=== PATIENT | female | born 1945 | race Caucasian/White ===

== ENCOUNTER → 2017-08-04 | Outpatient (CLI) | payer MEDICARE, OTHER ==
[~2017-08-04] MED LIST: ACEBUTCAFT PO; ACET500 PO; ALEN70 PO; CALCIT950 PO; CEPH500 PO; CYCL10; CYCL10 PO; DILT180 PO; DILT180ER PO; DIPH50 PO; DOCU100 PO; FURO40; FURO40 PO; HYDACE5 PO; HYDMOR2 PO; HYDR1TAB94 PO; LEVSOD200; LEVSOD200 PO; LEVSOD25 PO; ONDA4ODT MM; ONDA8 PO; POTA10T; POTA10T PO; POTCHL10ER PO; PRENZ PO; PROP80; VENL25 PO; VENL75ER; VENL75ER PO; [UNRECOGNIZED DRUG - OTHER]
[2017-08-04 10:16] LABS: BASOPHILS ABSOLUTE AUTO 0.06 K/mm3 (0.00-0.23); BASOPHILS PERCENT AUTO 1 % (0-2); EOSINOPHILS ABSOLUTE AUTO 0.36 K/mm3 (0.00-0.68); EOSINOPHILS PERCENT AUTO 6 % (0-6); Hematocrit 39.6 % (33.0-51.0); Hemoglobin 13.1 g/dL (11.5-16.0); IMMATURE GRAN ABSOLUTE AUTO 0.01 K/mm3 (0.00-0.10); IMMATURE GRAN PERCENT AUTO 0 % (0-1); LYMPHOCYTES ABSOLUTE AUTO 1.25 K/mm3 (0.84-5.20); LYMPHOCYTES PERCENT AUTO 22 % (21-46); MONOCYTES ABSOLUTE AUTO 0.47 K/mm3 (0.16-1.47); MONOCYTES PERCENT AUTO 8 % (4-13); Mean Corpuscular HGB 30.8 pg (26.0-34.0); Mean Corpuscular HGB Conc 33.1 g/dL (31.5-36.5); Mean Corpuscular Volume 93 fL (80-100); Mean Platelet Volume 10.1 fL (9.1-12.4); NEUTROPHILS ABSOLUTE AUTO 3.53 K/mm3 (1.96-9.15); NEUTROPHILS PERCENT AUTO 62 % (41-73); Platelet Count 200 K/mm3 (150-400); RDW Coefficient Variation 13.3 % (11.7-14.2); RDW Standard Deviation 45.1 fL (35.1-46.3); Red Blood Cell Count 4.26 M/mm3 (3.80-5.20); White Blood Cell Count 5.68 K/mm3 (4.00-11.30)
[2017-08-04 10:32] LABS: Alanine Aminotransfer (ALT/SGP 26 U/L (12-78); Albumin, Blood 3.5 g/dL (3.4-5.0); Albumin/Globulin Ratio 1.1 (0.8-1.8); Alk Phos 91 U/L (40-126); Anion Gap 6 mmol/L (6-16); Aspartate Aminotrans (AST/SGOT 23 U/L (12-37); Bilirubin, Total 0.4 mg/dL (0.1-1.0); Blood Urea Nitrogen 25 mg/dL (8-24); Bun/Creatinine Ratio 28.7 (12.0-20.0); CO2, Blood 30 mmol/L (21-32); Calcium, Blood 9.2 mg/dL (8.5-10.1); Chloride, Blood 106 mmol/L (98-108); Creatinine, Blood 0.87 mg/dL (0.40-1.00); Globulin, Blood 3.3 g/dL (2.2-4.0); Glomerular Filtration Rate >60 (60-); Glucose, Blood 91 mg/dL (70-99); Potassium, Blood 4.3 mmol/L (3.5-5.5); Sodium, Blood 142 mmol/L (136-145); Total Protein, Blood 6.8 g/dL (6.4-8.2); Troponin I <0.017 ng/mL (0.000-0.040)
== END ==
LOC: LAB EV 10:13 → LAB SHORT 10:13
PROVIDERS: Emergency Medicine
DX: R07.9 Chest pain, unspecified (principal)
CPT/HCPCS: 80053; 84484; 85025

== ENCOUNTER 2018-03-08 11:57 | Day surgery (SDC) | payer MEDICARE, OTHER ==
[~2018-03-08] VITALS: Ht 172.7 cm; Wt 89.0 kg
--- NOTE | 2018-03-08 15:28 | NUR ---
03/08/18 1528 Shelly Carroll AT 1430 PT WAS DC'D IN STABLE CONDITION WITH INSTRUCTIONS FOR CARE AND FOLLOW UP. BANDAID TO NECK C/D/I AND PT DENIED PAIN AND NAUSEA. SANDIE PO FLUIDS WELL AND STATED WAS GOING TO LUNCH WITH HER FRIEND ALLEN AFTER LEAVING HERE. COPIES OF INSTRUCTIONS GIVEN AND AMB TO CAR TOCrystal WELL
== END 2018-03-08 14:30 | disposition home or self-care (01) ==
LOC: ORSCSDS 11:57
PROVIDERS: Anesthesiology
PROC: 3E0R33Z Introduction of Anti-inflammatory into Spinal Canal, Percutaneous Approach (ICD-10-PCS; principal; 2018-03-08 13:00)
DX: M50.123 Cervical disc disorder at C6-C7 level with radiculopathy (principal); G47.33 Obstructive sleep apnea (adult) (pediatric); I10 Essential (primary) hypertension; E03.9 Hypothyroidism, unspecified; F32.9 Major depressive disorder, single episode, unspecified; Z79.899 Other long term (current) drug therapy
CPT/HCPCS: J1040; J2250; J3010; J7120

== ENCOUNTER → 2018-03-20 | Outpatient (CLI) | payer MEDICARE, OTHER | END | disposition home or self-care (01) | LOC: LAB EV 14:00 → LAB SHORT 14:00 | DX: R35.0 Frequency of micturition (principal) | CPT/HCPCS: 87086 ==

== ENCOUNTER → 2018-04-05 | Outpatient (CLI) | payer MEDICARE, OTHER | END | disposition home or self-care (01) | LOC: LAB EV 11:10 → LAB SHORT 11:10 | DX: R31.9 Hematuria, unspecified (principal) | CPT/HCPCS: 87086 ==

== ENCOUNTER 2018-04-29 12:49 | Day surgery (SDC) | payer MEDICARE, OTHER ==
[~2018-04-29] VITALS: Ht 172.7 cm; Wt 90.5 kg
[2018-04-29] MEDS ORDERED: DOCU100 PO (13:29)
[2018-04-29] MEDS ORDERED: DILT180ER PO (13:30)
--- NOTE | 2018-04-29 15:56 | NUR ---
04/29/18 1556 Amber Cruz DELAYED ENTRY PT STS BETADINE ALLERGY; PHYSICIAN AWARE & TO PROCEED WITH CASE. BETADINE USED WITH PREVIOUS EPIDURAL WITH NO ISSUES OR COMPLICATIONS PER PT & PHYSICIAN. BETADINE CLEANED FROM OPSITE AT THIS TIME; NO RASH OR SKIN IRRITATION NOTED.
== END 2018-04-29 14:34 | disposition home or self-care (01) ==
LOC: ORSCSDS 12:49
PROVIDERS: Anesthesiology
PROC: 3E0R33Z Introduction of Anti-inflammatory into Spinal Canal, Percutaneous Approach (ICD-10-PCS; principal; 2018-04-29 15:00)
DX: M54.5 Low back pain (principal); G47.33 Obstructive sleep apnea (adult) (pediatric); M48.061 Spinal stenosis, lumbar region without neurogenic claudication; E03.9 Hypothyroidism, unspecified; I10 Essential (primary) hypertension; F32.9 Major depressive disorder, single episode, unspecified; E66.9 Obesity, unspecified; Z68.30 Body mass index [BMI] 30.0-30.9, adult; Z79.899 Other long term (current) drug therapy
CPT/HCPCS: J1040

== ENCOUNTER 2018-07-10 10:29 | Day surgery (SDC) | payer MEDICARE, OTHER ==
[~2018-07-10] VITALS: Ht 172.7 cm; Wt 88.6 kg
[~2018-07-10 10:29] MED LIST changes: +Norco 5-325 Ta1 EACH PO; +PRENA1 TRUE CO1 EACH PO; +SYNTHROID175 MCG PO
[2018-07-10] MEDS ORDERED: Sleep Aid25 M1 PO (11:02)
== END 2018-07-10 11:51 | disposition home or self-care (01) ==
LOC: ORSCSDS 10:29
PROVIDERS: Anesthesiology
PROC: B01B1ZZ Fluoroscopy of Spinal Cord using Low Osmolar Contrast (ICD-10-PCS; principal; 2018-07-10 11:30)
PROC: 3E0R33Z Introduction of Anti-inflammatory into Spinal Canal, Percutaneous Approach (ICD-10-PCS; principal; 2018-07-10 11:30)
DX: M54.12 Radiculopathy, cervical region (principal); I10 Essential (primary) hypertension; G47.33 Obstructive sleep apnea (adult) (pediatric); E03.9 Hypothyroidism, unspecified; Z79.899 Other long term (current) drug therapy
CPT/HCPCS: J1040; J2250; J3010; J7120

== ENCOUNTER 2018-10-31 08:31 | Day surgery (SDC) | payer MEDICARE, OTHER ==
[~2018-10-31] VITALS: Ht 172.7 cm; Wt 91.9 kg
[~2018-10-31 08:31] MED LIST changes: +Sleep Aid25 M1 PO
[2018-10-31] MEDS ORDERED: ALEN70 (08:57)
== END 2018-10-31 09:26 | disposition home or self-care (01) ==
LOC: ORSCSDS 08:31
PROVIDERS: Anesthesiology
PROC: 3E0R33Z Introduction of Anti-inflammatory into Spinal Canal, Percutaneous Approach (ICD-10-PCS; principal; 2018-10-31 09:30)
DX: M51.16 Intervertebral disc disorders with radiculopathy, lumbar region (principal); I10 Essential (primary) hypertension; E03.9 Hypothyroidism, unspecified; G47.33 Obstructive sleep apnea (adult) (pediatric); F32.9 Major depressive disorder, single episode, unspecified; Z79.899 Other long term (current) drug therapy
CPT/HCPCS: J1040

== ENCOUNTER → 2019-12-24 | Outpatient (CLI) | payer MEDICARE, OTHER ==
[~2019-12-24] MED LIST changes: +ALEN70
[2019-12-24 15:06] LABS: BASOPHILS ABSOLUTE AUTO 0.05 K/mm3 (0.00-0.23); BASOPHILS PERCENT AUTO 1 % (0-2); EOSINOPHILS ABSOLUTE AUTO 0.37 K/mm3 (0.00-0.68); EOSINOPHILS PERCENT AUTO 6 % (0-6); Hematocrit 39.9 % (33.0-51.0); Hemoglobin 12.5 g/dL (11.5-16.0); IMMATURE GRAN ABSOLUTE AUTO 0.01 K/mm3 (0.00-0.10); IMMATURE GRAN PERCENT AUTO 0 % (0-1); LYMPHOCYTES ABSOLUTE AUTO 0.99 K/mm3 (0.84-5.20); LYMPHOCYTES PERCENT AUTO 16 % (21-46); MONOCYTES ABSOLUTE AUTO 0.37 K/mm3 (0.16-1.47); MONOCYTES PERCENT AUTO 6 % (4-13); Mean Corpuscular HGB 28.5 pg (26.0-34.0); Mean Corpuscular HGB Conc 31.3 g/dL (31.5-36.5); Mean Corpuscular Volume 91 fL (80-100); Mean Platelet Volume 10.5 fL (9.1-12.4); NEUTROPHILS ABSOLUTE AUTO 4.26 K/mm3 (1.96-9.15); NEUTROPHILS PERCENT AUTO 70 % (41-73); Platelet Count 260 K/mm3 (150-400); RDW Coefficient Variation 14.6 % (11.7-14.2); RDW Standard Deviation 48.7 fL (35.1-46.3); Red Blood Cell Count 4.39 M/mm3 (3.80-5.20); White Blood Cell Count 6.05 K/mm3 (4.00-11.30)
[2019-12-24 15:42] LABS: Alanine Aminotransfer (ALT/SGP 32 U/L (12-78); Albumin, Blood 3.7 g/dL (3.4-5.0); Albumin/Globulin Ratio 1.1 (0.8-1.8); Alk Phos 79 U/L (50-136); Anion Gap 7 mmol/L (6-16); Aspartate Aminotrans (AST/SGOT 30 U/L (12-37); Bilirubin, Total 0.7 mg/dL (0.1-1.0); Blood Urea Nitrogen 16 mg/dL (8-24); Bun/Creatinine Ratio 20.6 (12.0-20.0); CO2, Blood 25 mmol/L (21-32); Calcium, Blood 8.7 mg/dL (8.5-10.1); Chloride, Blood 114 mmol/L (98-108); Creatinine, Blood 0.78 mg/dL (0.40-1.00); Globulin, Blood 3.3 g/dL (2.2-4.0); Glomerular Filtration Rate >60 (60-); Glucose, Blood 92 mg/dL (70-99); Sodium, Blood 146 mmol/L (136-145)
== END | disposition home or self-care (01) ==
LOC: LAB SHORT 14:44 → LAB 14:44
PROVIDERS: Family Medicine
DX: L29.9 Pruritus, unspecified (principal)
CPT/HCPCS: 80053; 84443; 85025

== ENCOUNTER 2020-01-10 08:49 | Emergency (ER) | payer MEDICARE, OTHER ==
[~2020-01-10] VITALS: Ht 172.7 cm; Wt 88.5 kg
[2020-01-10 10:24] LABS: BASOPHILS ABSOLUTE AUTO 0.05 K/mm3 (0.00-0.23); BASOPHILS PERCENT AUTO 1 % (0-2); EOSINOPHILS ABSOLUTE AUTO 0.18 K/mm3 (0.00-0.68); EOSINOPHILS PERCENT AUTO 3 % (0-6); Hematocrit 39.2 % (33.0-51.0); Hemoglobin 12.3 g/dL (11.5-16.0); IMMATURE GRAN ABSOLUTE AUTO 0.01 K/mm3 (0.00-0.10); IMMATURE GRAN PERCENT AUTO 0 % (0-1); LYMPHOCYTES PERCENT AUTO 17 % (21-46); MONOCYTES ABSOLUTE AUTO 0.38 K/mm3 (0.16-1.47); MONOCYTES PERCENT AUTO 6 % (4-13); Mean Corpuscular HGB 28.5 pg (26.0-34.0); Mean Corpuscular HGB Conc 31.4 g/dL (31.5-36.5); Mean Corpuscular Volume 91 fL (80-100); Mean Platelet Volume 9.9 fL (9.1-12.4); NEUTROPHILS ABSOLUTE AUTO 4.29 K/mm3 (1.96-9.15); NEUTROPHILS PERCENT AUTO 73 % (41-73); Platelet Count 229 K/mm3 (150-400); RDW Coefficient Variation 14.2 % (11.7-14.2); RDW Standard Deviation 47.7 fL (35.1-46.3); Red Blood Cell Count 4.31 M/mm3 (3.80-5.20); White Blood Cell Count 5.91 K/mm3 (4.00-11.30)
[2020-01-10 10:35] LABS: Alanine Aminotransfer (ALT/SGP 73 U/L (12-78); Albumin, Blood 3.7 g/dL (3.4-5.0); Albumin/Globulin Ratio 1.1 (0.8-1.8); Alk Phos 86 U/L (50-136); Anion Gap 8 mmol/L (6-16); Aspartate Aminotrans (AST/SGOT 44 U/L (12-37); Bilirubin, Total 0.5 mg/dL (0.1-1.0); Blood Urea Nitrogen 19 mg/dL (8-24); Bun/Creatinine Ratio 23.3 (12.0-20.0); CO2, Blood 26 mmol/L (21-32); Calcium, Blood 9.3 mg/dL (8.5-10.1); Chloride, Blood 112 mmol/L (98-108); Creatinine, Blood 0.81 mg/dL (0.40-1.00); Globulin, Blood 3.5 g/dL (2.2-4.0); Glomerular Filtration Rate >60 (60-); Glucose, Blood 99 mg/dL (70-99); Potassium, Blood 3.9 mmol/L (3.5-5.5); Sodium, Blood 146 mmol/L (136-145); Total Protein, Blood 7.2 g/dL (6.4-8.2)
== END 2020-01-10 12:15 | disposition home or self-care (01) ==
LOC: ER 08:49
PROVIDERS: Physician Assistant
DX: N93.9 Abnormal uterine and vaginal bleeding, unspecified (principal); I10 Essential (primary) hypertension; Z88.6 Allergy status to analgesic agent; Z88.5 Allergy status to narcotic agent; Z88.8 Allergy status to other drugs, medicaments and biological substances; Z88.1 Allergy status to other antibiotic agents; Z91.041 Radiographic dye allergy status; Z85.42 Personal history of malignant neoplasm of other parts of uterus; Z79.899 Other long term (current) drug therapy; Z90.710 Acquired absence of both cervix and uterus
CPT/HCPCS: 36415; 72192; 80053; 85025; 99284-25

== ENCOUNTER 2020-05-07 09:19 | Day surgery (SDC) | payer MEDICARE, OTHER ==
[~2020-05-07] VITALS: Ht 172.7 cm; Wt 91.0 kg
[~2020-05-07 09:19] MED LIST changes: +AIMOVIG AU70 MG/1 ML SC; +CYCLOBENZAPRINE5 MG PO; +DILTIAZEM 24HR180 M4 PO; +Estrace Vagin42.5 GM; +LEVOTHYROXINE175 MC1 PO; +NEURONTIN600 MG PO; +TIZA4 PO; +TRIA15CR3
--- NOTE | 2020-05-07 10:48 | NUR ---
05/07/20 1048 Anthony Carballo BUPIVACAINE 0.5% 30 MLS MIXED WITH 0.15 MLS EPI PER ORDER TO MAKE BUPIVACAINE 0.5% 1:200,000 FOR INJECTION AT OPSITE BY DR. ALBERTS
--- NOTE | 2020-05-07 11:31 | NUR ---
05/07/20 1131 Leann Boucher ASSUMED CARE OF PATIENT AT 1115 PATIENT STABLE, TOLERATING PO FLUIDS/FOOD. NO C/O PAIN OR NAUSEA. WILL DISCHARGE HOME.
== END 2020-05-07 11:42 | disposition home or self-care (01) ==
LOC: ORSCSDS 09:19
PROVIDERS: Podiatrist Foot & Ankle Surgery
PROC: 0SNQ0ZZ Release Left Toe Phalangeal Joint, Open Approach (ICD-10-PCS; principal; 2020-05-07 11:00)
PROC: 0L8W0ZZ Division of Left Foot Tendon, Open Approach (ICD-10-PCS; principal; 2020-05-07 11:00)
DX: M79.674 Pain in right toe(s) (principal); M20.42 Other hammer toe(s) (acquired), left foot; I10 Essential (primary) hypertension; F32.9 Major depressive disorder, single episode, unspecified; J45.909 Unspecified asthma, uncomplicated; E66.9 Obesity, unspecified; Z68.30 Body mass index [BMI] 30.0-30.9, adult; Z79.899 Other long term (current) drug therapy
CPT/HCPCS: J0171; J0690; J2250; J2704; J3010; J7120

== ENCOUNTER 2020-08-18 16:21 | Emergency (ER) | payer OTHER, MEDICARE ==
[~2020-08-18] VITALS: Ht 172.7 cm; Wt 88.5 kg
[2020-08-18 18:22] LABS: Albumin, Blood 3.3 g/dL (3.4-5.0); Bilirubin, Total 0.2 mg/dL (0.1-1.0); Bun/Creatinine Ratio 23.3 (12.0-20.0); Calcium, Blood 9.4 mg/dL (8.5-10.1); Creatinine, Blood 1.03 mg/dL (0.40-1.00); Globulin, Blood 3.4 g/dL (2.2-4.0); Potassium, Blood 4.1 mmol/L (3.5-5.5); Total Protein, Blood 6.7 g/dL (6.4-8.2)
[2020-08-18 18:45] LABS: BASOPHILS ABSOLUTE AUTO 0.06 K/mm3 (0.00-0.23); BASOPHILS PERCENT AUTO 1 % (0-2); EOSINOPHILS ABSOLUTE AUTO 0.14 K/mm3 (0.00-0.68); EOSINOPHILS PERCENT AUTO 2 % (0-6); Hematocrit 32.3 % (33.0-51.0); Hemoglobin 10.1 g/dL (11.5-16.0); IMMATURE GRAN ABSOLUTE AUTO 0.02 K/mm3 (0.00-0.10); IMMATURE GRAN PERCENT AUTO 0 % (0-1); LYMPHOCYTES ABSOLUTE AUTO 1.28 K/mm3 (0.84-5.20); LYMPHOCYTES PERCENT AUTO 19 % (21-46); MONOCYTES ABSOLUTE AUTO 0.68 K/mm3 (0.16-1.47); MONOCYTES PERCENT AUTO 10 % (4-13); Mean Corpuscular HGB 26.1 pg (26.0-34.0); Mean Corpuscular HGB Conc 31.3 g/dL (31.5-36.5); Mean Corpuscular Volume 84 fL (80-100); Mean Platelet Volume 10.2 fL (9.1-12.4); NEUTROPHILS PERCENT AUTO 68 % (41-73); Platelet Count 224 K/mm3 (150-400); RDW Coefficient Variation 16.3 % (11.7-14.2); RDW Standard Deviation 49.3 fL (35.1-46.3); Red Blood Cell Count 3.87 M/mm3 (3.80-5.20); White Blood Cell Count 6.78 K/mm3 (4.00-11.30)
== END 2020-08-18 19:30 | disposition home or self-care (01) ==
LOC: ER 16:21
PROVIDERS: Student in an Organized Health Care Education/Training Program
DX: R51.9 Headache, unspecified (principal); M54.2 Cervicalgia; M54.5 Low back pain; M25.559 Pain in unspecified hip; I10 Essential (primary) hypertension; Z88.6 Allergy status to analgesic agent; Z91.041 Radiographic dye allergy status; Z88.5 Allergy status to narcotic agent; Z79.899 Other long term (current) drug therapy; V49.40XA Driver injured in collision with unspecified motor vehicles in traffic accident, initial encounter; Y92.411 Interstate highway as the place of occurrence of the external cause
CPT/HCPCS: 36415; 70450; 71260; 72125; 74177; 80053; 85025; 99284-25; Q9967

== ENCOUNTER 2020-08-27 13:44 | Emergency (ER) | payer OTHER, MEDICARE ==
[~2020-08-27] VITALS: Ht 172.7 cm; Wt 88.5 kg
[2020-08-27] MEDS ORDERED: Norco 5-325 Ta1 EACH PO (16:37)
[2020-08-27] MEDS ORDERED: VOLTAREN ARTHRI20 GM TOP (16:37)
== END 2020-08-27 16:45 | disposition home or self-care (01) ==
LOC: ER 13:44
DX: M25.511 Pain in right shoulder (principal); Z88.6 Allergy status to analgesic agent; Z91.041 Radiographic dye allergy status; Z88.5 Allergy status to narcotic agent; Z79.899 Other long term (current) drug therapy
CPT/HCPCS: 99282

== ENCOUNTER → 2020-10-27 | Outpatient (CLI) | payer MEDICARE, OTHER ==
[~2020-10-27] MED LIST changes: +VOLTAREN ARTHRI20 GM TOP
[2020-10-27 13:26] LABS: Stool Occult Bld Immuno 1 Negative (NEGATIVE)
== END | disposition home or self-care (01) ==
LOC: LAB SHORT 06:00 → LAB 06:00
PROVIDERS: Family Medicine
DX: R41.3 Other amnesia (principal)
CPT/HCPCS: G0328

== ENCOUNTER 2021-06-14 08:15 | Inpatient (IN) | payer MEDICARE, OTHER ==
[~2021-06-14] VITALS: Ht 172.7 cm; Wt 81.6 kg
[~2021-06-14 08:15] MED LIST changes: -Estrace Vagin42.5 GM; +Estrace Vagin42.5 GM VAG; +Inderal60 MG PO; +TRIMETHOPRIM PO
--- NOTE | 2021-06-14 11:02 | NUR ---
REPORT FROM ROOSEVELT DO RN. Lungs clear T/O to Auscultation. History, Chart, Medications and Allergies reviewed before start of procedure. PT RESTING COMFORTABLY IN BED. AXOX4.
--- NOTE | 2021-06-14 16:00 | NUR ---
ARRIVED TO UNIT FROM PACU. VSS ON RA. AQUACEL IN PLACE TO L SHOULDER, C/D/I. IMMOBILZER & POLAR PACK IN PLACE TO LEFT SHOULDER. PATIENT DENIES PAIN, ABLE TO WIGGLE ALL FINGERS.
--- NOTE | 2021-06-14 18:13 | NUR ---
RN Student Note: Checked in on Pt, she is up in bed, alert, and comfortable. Helped put polar pack on shoulder.
--- NOTE | 2021-06-14 18:34 | NUR ---
NO ACUTE CHANGES SINCE ARRIVAL TO UNIT. A&O X4, VSS ON RA. PATIENT UP IN BED AND TOLERATING PO LIQUIDS & FOOD. DENIES N/V. REPORTS PAIN TO BE TOLERABLE AT 2/10, "MAINLY IN RIGHT SHOULDER FROM REACHING FOR MY FOOD". WILL REPORT TO ONCOMING RN.
--- NOTE | 2021-06-15 03:55 | NUR ---
SHIFT SUMMARY POD 1 LEFT REVERSE TOTAL SHOULDER. LUE IN SLING AND NWB. AQUACEL DRESSING REMAINS CDI WITH POLAR PACK IN PLACE. PT REPORTS FULL SENSATION TO LUE R/T NERVE BLOCK. PT REPORTS MINIMAL PAIN. 1 OXYCODONE + TYLENOL FOR PAIN. 1 SBA TO BRP. USES CALL LIGHT APPROPRIATELY.
[2021-06-15 05:13] LABS: BASOPHILS ABSOLUTE AUTO 0.01 K/mm3 (0.00-0.23); BASOPHILS PERCENT AUTO 0 % (0-2); EOSINOPHILS PERCENT AUTO 0 % (0-6); Hematocrit 27.3 % (33.0-51.0); Hemoglobin 8.6 g/dL (11.5-16.0); IMMATURE GRAN ABSOLUTE AUTO 0.03 K/mm3 (0.00-0.10); IMMATURE GRAN PERCENT AUTO 0 % (0-1); LYMPHOCYTES ABSOLUTE AUTO 0.75 K/mm3 (0.84-5.20); LYMPHOCYTES PERCENT AUTO 8 % (21-46); MONOCYTES ABSOLUTE AUTO 0.83 K/mm3 (0.16-1.47); MONOCYTES PERCENT AUTO 9 % (4-13); Mean Corpuscular HGB 28.1 pg (26.0-34.0); Mean Corpuscular HGB Conc 31.5 g/dL (31.5-36.5); Mean Corpuscular Volume 89 fL (80-100); Mean Platelet Volume 9.7 fL (9.1-12.4); NEUTROPHILS ABSOLUTE AUTO 7.42 K/mm3 (1.96-9.15); NEUTROPHILS PERCENT AUTO 82 % (41-73); Platelet Count 152 K/mm3 (150-400); RDW Coefficient Variation 15.3 % (11.7-14.2); RDW Standard Deviation 49.6 fL (35.1-46.3); Red Blood Cell Count 3.06 M/mm3 (3.80-5.20); White Blood Cell Count 9.04 K/mm3 (4.00-11.30)
[2021-06-15 05:47] LABS: Anion Gap 5 mmol/L (6-16); Blood Urea Nitrogen 25 mg/dL (8-24); Bun/Creatinine Ratio 36.4 (12.0-20.0); CO2, Blood 27 mmol/L (21-32); Calcium, Blood 8.9 mg/dL (8.5-10.1); Chloride, Blood 105 mmol/L (98-108); Creatinine, Blood 0.69 mg/dL (0.40-1.00); Glomerular Filtration Rate >60 (60-); Glucose, Blood 103 mg/dL (70-99); Potassium, Blood 4.9 mmol/L (3.5-5.5); Sodium, Blood 137 mmol/L (136-145)
[2021-06-15] MEDS ORDERED: Percocet 5-3251 EACH PO (09:45)
--- NOTE | 2021-06-15 14:26 | NUR ---
DISCHARGE INSTRUCTIONS DISCUSSED INSTRUCTIONS, SCRIPT & DRSGS GIVEN. PT PLANS TO HAVE SISTER OVER TO ASSIST HER & NEPHEW WELL. CURRENTLY [facility] CALLING FOR TRANSPORTATION HOME.
--- NOTE | 2021-06-15 16:05 | NUR ---
DISCHARGE SUMMARY PT A/O X4; PLEASANT AND COOPERATIVE WITH CARE. POD #1 FOR REVERSE L SHOULDER. SLIGHTLY UNSTEADY ON FEET AND REQUIRES SUPERVISION AT HOME WHILE UP. EDUCATED BY JEWELRY FINISHER PRIOR TO DC.
== END 2021-06-15 15:00 | disposition home or self-care (01) | DRG 483 ==
LOC: PRE IP 08:15 → ORSCMMR 08:15 → MEDS 09:48 → PRE IP 11:00 → ORSCMMR 11:00 → ORD 11:00 → EDSTATUS 11:00 → SURS 16:45
PROVIDERS: ADMIT Orthopaedic Surgery
PROC: 0RRK00Z Replacement of Left Shoulder Joint with Reverse Ball and Socket Synthetic Substitute, Open Approach (ICD-10-PCS; principal; 2021-06-14 11:00)
DX: M19.012 Primary osteoarthritis, left shoulder (principal); E03.9 Hypothyroidism, unspecified; I10 Essential (primary) hypertension; Z98.890 Other specified postprocedural states; G47.33 Obstructive sleep apnea (adult) (pediatric); G43.909 Migraine, unspecified, not intractable, without status migrainosus; Z96.611 Presence of right artificial shoulder joint; Z79.899 Other long term (current) drug therapy; Z88.6 Allergy status to analgesic agent; Z88.1 Allergy status to other antibiotic agents; Z88.8 Allergy status to other drugs, medicaments and biological substances
CPT/HCPCS: 36415; 73030; 80048; 85025; 97110; 97116; 97162; 97166; 97535; A9270; C1776; J0171; J0690; J0735; J1100; J1885; J2250; J2405; J2704; J2795; J3010; J7120

== ENCOUNTER → 2022-04-12 | Outpatient (CLI) | payer MEDICARE ==
[~2022-04-12] MED LIST changes: +Percocet 5-3251 EACH PO
== END | disposition home or self-care (01) ==
LOC: LAB 16:26 → LAB SHORT 16:26
DX: R35.0 Frequency of micturition (principal)
CPT/HCPCS: 87086